=== PATIENT | male | born 1980 | race Caucasian/White ===

== ENCOUNTER 2017-05-31 15:41 | Emergency (ER) | payer OTHER ==
[~2017-05-31] VITALS: Ht 185.4 cm; Wt 86.2 kg
[2017-05-31 16:46] LABS: *BILIRUBIN,URIN NEGATIVE (NEGATIVE); *BLOOD, URINE NEGATIVE (NEGATIVE); *COLOR,URINE YELLOW (YELLOW); *KETONES,URINE NEGATIVE (NEGATIVE); *PROTEIN,URINE NEGATIVE (NEGATIVE); *UROBILINOGEN,URINE 0.2 E.U./dl (NORMAL); LEUKOCYTE ESTERASE ,URINE NEGATIVE (NEGATIVE); NITRITE, URINE NEGATIVE (NEGATIVE); PH,URINE 7.5 (5.0-8.0); UGLUCOSE NEGATIVE (NEGATIVE)
[2017-05-31 16:47] LABS: BASOPHILS # (AUTO) 0.1 K/uL (0.0-8.0); EOSINOPHILS # (AUTO) 0.3 K/uL (0.0-0.7); EOSINOPHILS % (AUTO) 2.8 % (0.0-7.0); HEMATOCRIT 46.1 % (40-50); HEMOGLOBIN 15.4 G/DL (14.0-18.0); LYMPHOCYTES # (AUTO) 2.6 K/UL (0.8-4.8); LYMPHOCYTES % (AUTO) 23.9 % (20.5-51.5); MEAN CORPUSCULAR HEMOGLOBIN 28.4 UUG (27.0-31.0); MEAN CORPUSCULAR HGB CONC 33 g/dL (32.0-37.0); MEAN CORPUSCULAR VOLUME 85.1 FL (82.0-92.0); MONOCYTES # (AUTO) 0.8 K/UL (0.1-1.30); MONOCYTES % (AUTO) 7.6 % (0.0-11.0); NEUTROPHILS # (AUTO) 7.1 K/UL (1.8-8.9); NEUTROPHILS % (AUTO) 64.7 % (38.5-71.5); PLATELET COUNT (AUTO) 221 K/UL (150-450); RED BLOOD CELL COUNT(AUTO) 5.42 MIL/UL (4.7-6.1); WHITE BLOOD COUNT (AUTO) 10.9 K/UL (4.0-11.2)
[2017-05-31 16:54] LABS: CREATININE 1.2 mg/dL (0.6-1.3); POTASSIUM 3.7 mmol/L (3.5-5.1)
[2017-05-31 16:54] LABS: *CLARITY,URINE HAZY (CLEAR)
[2017-05-31 16:56] LABS: MUCUS,URINE FEW /LPF (0-FEW); URINE AMORPHOUS PHOSPHATES MODERATE /HPF; WBC,URINE NONE SEEN /HPF (0-3)
[2017-05-31 17:06] LABS: BILIRUBIN,DIRECT 0.1 mg/dL (0.0-0.2); BILIRUBIN,TOTAL 0.3 mg/dL (0.2-1.0); TOTAL PROTEIN, SERUM 7.4 g/dL (6.4-8.2)
--- NOTE | 2017-05-31 17:23 | NUR ---
Patient is resting comfortably on gurney while using his personal electronic device, [employer]. Pain level is down to 4/10 from 6-7/10 level after IV Dialudid. Patient says "It feels different." MD notified.
--- NOTE | 2017-05-31 17:39 | NUR ---
Patient discharged to home in stable conditon. Written and verbal after care instructions given. Patient verbalizes understanding of instructions.PT WALKS IN STEADY GAIT ACCOMPANIED BY SO.
[2017-05-31 17:40] VITALS: BP 109/71
== END 2017-05-31 17:41 | disposition home or self-care (01) ==
LOC: ER 15:41
DX: K59.00 Constipation, unspecified (principal)
CPT/HCPCS: 36415; 74176; 80048; 80076; 81001; 83690; 85025; 85730; 96361; 96374; 96375; 99285; A4663; C9113; J1170; J2405; J7030

== ENCOUNTER 2017-09-23 18:25 | Inpatient (IN) | payer OTHER ==
[~2017-09-23] VITALS: Ht 188 cm; Wt 82.6 kg
[2017-09-23] MEDS ORDERED: PANTOPRAZOLE SODIUM 40 MG VIAL IV ONE (20:15)
[2017-09-23] MEDS ORDERED: IV NORMAL SALINE 1000 ML BAG IV ONE (20:15)
[2017-09-23] MEDS ORDERED: ONDANSETRON 4 MG/2 ML VIAL IV ONE (20:15)
[2017-09-23] MEDS ORDERED: HYDROMORPHONE 1 MG/1 ML DISP.SYRIN IV ONE (20:15)
[2017-09-23 20:22] LABS: BASOPHILS # (AUTO) 0.1 K/uL (0.0-8.0); BASOPHILS % (AUTO) 0.9 % (0.0-2.0); EOSINOPHILS # (AUTO) 0.3 K/uL (0.0-0.7); EOSINOPHILS % (AUTO) 2.7 % (0.0-7.0); HEMATOCRIT 41.1 % (36.7-47.1); HEMOGLOBIN 13.9 g/dL (12.5-16.3); LYMPHOCYTES # (AUTO) 2.5 K/uL (20.0-40.0); LYMPHOCYTES % (AUTO) 21.3 % (20.5-51.5); MEAN CORPUSCULAR HEMOGLOBIN 29.2 uug (23.8-33.4); MEAN CORPUSCULAR HGB CONC 34 g/dL (32.5-36.3); MEAN CORPUSCULAR VOLUME 85.9 fL (73.0-96.2); MONOCYTES # (AUTO) 1.1 K/uL (2.0-10.0); MONOCYTES % (AUTO) 9.3 % (0.0-11.0); NEUTROPHILS # (AUTO) 7.8 K/uL (1.8-8.9); NEUTROPHILS % (AUTO) 65.8 % (38.5-71.5); PLATELET COUNT (AUTO) 213 K/uL (152-348); RED BLOOD CELL COUNT(AUTO) 4.78 MIL/uL (4.06-5.63); WHITE BLOOD COUNT (AUTO) 11.8 K/uL (3.6-10.2)
[2017-09-23] MEDS ORDERED: HYDROMORPHONE 1 MG/1 ML DISP.SYRIN ONE (20:32)
[2017-09-23] MEDS ORDERED: ONDANSETRON 4 MG/2 ML VIAL ONE (20:32)
[2017-09-23 20:33] LABS: CREATININE 0.9 mg/dL (0.6-1.3); POTASSIUM 3.7 mmol/L (3.5-5.1)
[2017-09-23] MEDS ORDERED: PANTOPRAZOLE SODIUM 40 MG VIAL ONE (20:33)
[2017-09-23 20:38] LABS: BILIRUBIN,DIRECT 0.1 mg/dL (0.0-0.2); BILIRUBIN,TOTAL 0.2 mg/dL (0.2-1.0)
[2017-09-23] MEDS ORDERED: ACETAMINOPHEN 650 MG SUPP.RECT RC PRN (22:30)
[2017-09-23] MEDS ORDERED: ONDANSETRON 4 MG/2 ML VIAL IV PRN (22:30)
[2017-09-23 22:37] LABS: *BILIRUBIN,URIN NEGATIVE (NEGATIVE); *BLOOD, URINE NEGATIVE (NEGATIVE); *CLARITY,URINE SLIGHTLY CLOUDY (CLEAR); *COLOR,URINE YELLOW (YELLOW); *KETONES,URINE NEGATIVE (NEGATIVE); *PROTEIN,URINE 1+ (NEGATIVE); *UROBILINOGEN,URINE 0.2 E.U./dl (NORMAL); LEUKOCYTE ESTERASE ,URINE NEGATIVE (NEGATIVE); NITRITE, URINE NEGATIVE (NEGATIVE); PH,URINE 6.5 (5.0-8.0); UGLUCOSE NEGATIVE (NEGATIVE)
[2017-09-23 22:51] LABS: BACTERIA,URINE NONE SEEN /HPF (NONE SEEN); MUCUS,URINE FEW /LPF (0-FEW); RBC,URINE 0-3 /HPF (0-3); SQUAMOUS EPITHELIAL CELL,UR FEW /HPF (NONE SEEN); URINE AMORPHOUS URATE FEW /HPF; WBC,URINE 0-3 /HPF (0-3)
[2017-09-24] VITALS: BP 122/84
[2017-09-24] MEDS: HYDROMORPHONE 1 MG/1 ML DISP.SYRIN IV PRN ×3 (00:01→23:53)
[2017-09-24] MEDS ORDERED: HYDROMORPHONE 1 MG/1 ML DISP.SYRIN ONE ×2 (00:11→04:38)
[2017-09-24] MEDS: POTASSIUM CHLORIDE 20 MEQ in IV D5/ 0.9% NACL 1,000 ML IV PRN ×2 (01:26→15:17)
[2017-09-24 04:48] VITALS: BP 109/63
[2017-09-24 07:25] LABS: BASOPHILS # (AUTO) 0.1 K/uL (0.0-8.0); BASOPHILS % (AUTO) 0.6 % (0.0-2.0); EOSINOPHILS # (AUTO) 0.3 K/uL (0.0-0.7); EOSINOPHILS % (AUTO) 2.9 % (0.0-7.0); HEMATOCRIT 38.4 % (36.7-47.1); HEMOGLOBIN 12.9 g/dL (12.5-16.3); LYMPHOCYTES # (AUTO) 2.5 K/uL (20.0-40.0); LYMPHOCYTES % (AUTO) 25.6 % (20.5-51.5); MEAN CORPUSCULAR HEMOGLOBIN 28.8 uug (23.8-33.4); MEAN CORPUSCULAR HGB CONC 34 g/dL (32.5-36.3); MEAN CORPUSCULAR VOLUME 85.9 fL (73.0-96.2); MONOCYTES % (AUTO) 10.3 % (0.0-11.0); NEUTROPHILS % (AUTO) 60.6 % (38.5-71.5); PLATELET COUNT (AUTO) 201 K/uL (152-348); RED BLOOD CELL COUNT(AUTO) 4.47 MIL/uL (4.06-5.63); WHITE BLOOD COUNT (AUTO) 9.9 K/uL (3.6-10.2)
[2017-09-24 07:36] LABS: BILIRUBIN,TOTAL 0.2 mg/dL (0.2-1.0); CREATININE 0.8 mg/dL (0.6-1.3); MAGNESIUM 1.9 mg/dL (1.8-2.4); PHOSPHOROUS 3.9 mg/dL (2.5-4.9); POTASSIUM 3.8 mmol/L (3.5-5.1); TOTAL PROTEIN, SERUM 6.2 g/dL (6.4-8.2)
[2017-09-24] MEDS ORDERED: FAMOTIDINE. 20 MG/2 ML VIAL IV ONE (09:00)
[2017-09-24 11:03] VITALS: BP 109/74
[2017-09-24 15:03] VITALS: BP 123/88
[2017-09-24 19:00] VITALS: BP 106/64
[2017-09-25] MEDS: POTASSIUM CHLORIDE 20 MEQ in IV D5/ 0.9% NACL 1,000 ML IV PRN (01:48)
[2017-09-25] MEDS ORDERED: ACETAMINOPHEN 325 MG TABLET PO PRN (10:45)
[2017-09-25 11:02] VITALS: BP 112/72
== END 2017-09-25 13:30 | disposition home or self-care (01) | DRG 282 ==
LOC: ER 18:27 → TELE 23:01 → MED 09-24 17:40
PROVIDERS: ADMIT Internal Medicine; ATTEND Nurse Practitioner Acute Care
DX: K85.90 Acute pancreatitis without necrosis or infection, unspecified (principal); D72.829 Elevated white blood cell count, unspecified; F10.21 Alcohol dependence, in remission; Z72.0 Tobacco use; K29.80 Duodenitis without bleeding; K86.1 Other chronic pancreatitis
CPT/HCPCS: 36415; 70030-TC; 71045; 83690; 83735; 84100; 85025; 85730; 93005; A4663; C9113; J1170; J2405; J3480; J3490; J7030; J7042

== ENCOUNTER 2017-10-05 16:41 | Inpatient (IN) | payer OTHER ==
[~2017-10-05] VITALS: Ht 185.4 cm; Wt 80.3 kg
[2017-10-05] MEDS ORDERED: MORPHINE SULFATE 2 MG/1 ML DISP.SYRIN IV ONE ×2 (17:21→18:22)
[2017-10-05] MEDS ORDERED: PANTOPRAZOLE SODIUM IV 40 MG in IV DEXTROSE 5% 100 ML IV ONE (17:24)
[2017-10-05] MEDS ORDERED: IV NS 1000 ML 1,000 ML IV ONE (17:30)
[2017-10-05] MEDS ORDERED: ONDANSETRON IV *ER 4 MG/2 ML VIAL IV ONE ×2 (17:30→21:15)
[2017-10-05 17:45] LABS: BASOPHILS # (AUTO) 0.1 K/uL (0.0-8.0); BASOPHILS % (AUTO) 0.8 % (0.0-2.0); EOSINOPHILS # (AUTO) 0.2 K/uL (0.0-0.7); EOSINOPHILS % (AUTO) 2.1 % (0.0-7.0); HEMATOCRIT 43.6 % (36.7-47.1); HEMOGLOBIN 14.7 g/dL (12.5-16.3); LYMPHOCYTES # (AUTO) 2.3 K/uL (20.0-40.0); MEAN CORPUSCULAR HEMOGLOBIN 28.3 uug (23.8-33.4); MEAN CORPUSCULAR HGB CONC 34 g/dL (32.5-36.3); MEAN CORPUSCULAR VOLUME 84.2 fL (73.0-96.2); MONOCYTES # (AUTO) 0.8 K/uL (2.0-10.0); MONOCYTES % (AUTO) 8.3 % (0.0-11.0); NEUTROPHILS # (AUTO) 6.6 K/uL (1.8-8.9); NEUTROPHILS % (AUTO) 65.8 % (38.5-71.5); PLATELET COUNT (AUTO) 272 K/uL (152-348); RED BLOOD CELL COUNT(AUTO) 5.18 MIL/uL (4.06-5.63)
[2017-10-05 17:47] LABS: POTASSIUM 3.9 mmol/L (3.5-5.1)
[2017-10-05 17:53] LABS: BILIRUBIN,TOTAL 0.4 mg/dL (0.2-1.0); TOTAL PROTEIN, SERUM 7.5 g/dL (6.4-8.2)
[2017-10-05] MEDS ORDERED: PANTOPRAZOLE SODIUM 40 MG VIAL ONE (17:54)
[2017-10-05] MEDS ORDERED: ONDANSETRON 4 MG/2 ML VIAL ONE ×2 (17:54→21:26)
[2017-10-05] MEDS ORDERED: MORPHINE SULFATE 4 MG/1 ML DISP.SYRIN ONE ×3 (17:54→21:26)
--- NOTE | 2017-10-05 18:29 | NUR ---
36 years old male walking to er c/o pancreatitis flare up, nausea meds given with fair effect, 2nd dose morphine given will continue to monitor.
--- NOTE | 2017-10-05 18:42 | NUR ---
pt reassess pain improved after 2nd dose of morphine no nausea vomiting.
--- NOTE | 2017-10-05 19:00 | NUR ---
Received report from amber RN. I assumed care for this patient. Pt resting with eyes closed, no acute signs of distress.
--- NOTE | 2017-10-05 21:00 | NUR ---
Pt cont to c/o pain, requesting more pain medication. notified and Dr. Gómez at bedside.
--- NOTE | 2017-10-05 21:05 | NUR ---
Ravi paged for Dr. Gómez
[2017-10-05] MEDS ORDERED: MORPHINE SULFATE 4 MG/1 ML DISP.SYRIN IV ONE (21:15)
--- NOTE | 2017-10-05 21:21 | NUR ---
Dr. Gómez speaking with Dr. Storm for possible admission of pt
--- NOTE | 2017-10-05 21:47 | NUR ---
Passed report to MARY KAY Jennings.
--- NOTE | 2017-10-05 21:50 | NUR ---
cell technician at bedside.
[2017-10-05] MEDS ORDERED: IV NORMAL SALINE 250 ML IV ONE (21:51)
[2017-10-05] MEDS ORDERED: IOHEXOL 300MG/ML 100 ML INFUS..BTL ONE (21:51)
[2017-10-05] MEDS ORDERED: NORMAL SALINE FLUSH 10 ML DISP.SYRIN ONE (21:51)
--- NOTE | 2017-10-05 22:05 | NUR ---
MRSA culture collected and sent to lab.
--- NOTE | 2017-10-05 22:15 | NUR ---
Pt out of ER to CT scan.
--- NOTE | 2017-10-05 22:30 | NUR ---
ADMITTED NEW PATIENT TO ROOM 204,ALERT,ORIENTED, IN NO ACUTE DISTRESS,C/O UPPER ABDOMINAL PAIN WITH INTERMITTENTLY NAUSEA AND VOMITING, NOTIFIED OF ADMISSION, ORDER RECEIVED.
[2017-10-05 22:37] VITALS: BP 119/89
--- NOTE | 2017-10-05 23:00 | NUR ---
PATIENT TOLERATED CLEAR LIQUID FAIRLY WELL,NO NAUSEA NOTED.
[2017-10-05] MEDS ORDERED: ONDANSETRON 4 MG/2 ML VIAL IV PRN (23:45)
[2017-10-05] MEDS ORDERED: MAG HYDROX/AL HYDROX/SIMETH 30 ML LIQUID UDC PO PRN (23:45)
[2017-10-05] MEDS ORDERED: IV 1/2NS 1000 ML 1,000 ML IV PRN (23:45)
[2017-10-05] MEDS ORDERED: MORPHINE SULFATE 2 MG/1 ML DISP.SYRIN IV PRN (23:45)
[2017-10-06] MEDS ORDERED: MORPHINE SULFATE 4 MG/1 ML DISP.SYRIN ONE (00:02)
--- NOTE | 2017-10-06 01:00 | NUR ---
patient asleep, after medicated with morphine 4 mg iv for pain, appears comfortable.
[2017-10-06 04:38] VITALS: BP 104/63
[2017-10-06 06:52] LABS: BILIRUBIN,TOTAL 0.3 mg/dL (0.2-1.0); CREATININE 0.9 mg/dL (0.6-1.3); MAGNESIUM 1.9 mg/dL (1.8-2.4); PHOSPHOROUS 3.9 mg/dL (2.5-4.9); POTASSIUM 3.8 mmol/L (3.5-5.1); TOTAL PROTEIN, SERUM 6.3 g/dL (6.4-8.2)
[2017-10-06] MEDS ORDERED: PANTOPRAZOLE SODIUM 40 MG TABLET.DR PO SCH (07:00)
[2017-10-06 07:03] LABS: BASOPHILS # (AUTO) 0.1 K/uL (0.0-8.0); BASOPHILS % (AUTO) 0.7 % (0.0-2.0); EOSINOPHILS # (AUTO) 0.3 K/uL (0.0-0.7); EOSINOPHILS % (AUTO) 2.3 % (0.0-7.0); HEMATOCRIT 40.1 % (36.7-47.1); HEMOGLOBIN 13.4 g/dL (12.5-16.3); LYMPHOCYTES # (AUTO) 2.7 K/uL (20.0-40.0); LYMPHOCYTES % (AUTO) 21.2 % (20.5-51.5); MEAN CORPUSCULAR HEMOGLOBIN 28.1 uug (23.8-33.4); MEAN CORPUSCULAR HGB CONC 33 g/dL (32.5-36.3); MONOCYTES # (AUTO) 0.9 K/uL (2.0-10.0); MONOCYTES % (AUTO) 6.8 % (0.0-11.0); NEUTROPHILS # (AUTO) 8.7 K/uL (1.8-8.9); PLATELET COUNT (AUTO) 252 K/uL (152-348); RED BLOOD CELL COUNT(AUTO) 4.77 MIL/uL (4.06-5.63); WHITE BLOOD COUNT (AUTO) 12.6 K/uL (3.6-10.2)
--- NOTE | 2017-10-06 09:10 | NUR ---
awake, oriented x 4, up and about, states has abdominal pain 5/10- medicated with morphine 4mg iv as prn, BP 109/61. explained plan of care- verbalized understanding, call light within reach
[2017-10-06] MEDS: MORPHINE SULFATE 4 MG/1 ML DISP.SYRIN IV PRN ×3 (09:18→19:10)
--- NOTE | 2017-10-06 11:00 | NUR ---
seen by Raul Jeronimo [employer] with orders- informed of urine specimen needed- verbalized understanding
[2017-10-06 11:01] VITALS: BP 98/57
--- NOTE | 2017-10-06 11:15 | NUR ---
states wanted to see Dr Archie Jeronimo notified, pt kept NPO as ordered, ambulated in the gutier[address] way
[2017-10-06 11:22] LABS: THYROID STIMULATING HORMONE 2.101 mIU/mL (0.358-3.740)
[2017-10-06] MEDS: POTASSIUM CHLORIDE 20 MEQ in IV D5/ 0.9% NACL 1,000 ML IV PRN (13:05)
[2017-10-06] MEDS: NICOTINE 21 MG/24HR PATCH TD SCH (14:00)
[2017-10-06] MEDS: MEROPENEM 1 G in IV NORMAL SALINE 100 ML IV SCH ×2 (14:59→22:03)
[2017-10-06 15:00] VITALS: BP 102/64
--- NOTE | 2017-10-06 16:00 | NUR ---
seen by Dr Nieto
--- NOTE | 2017-10-06 18:54 | NUR ---
asking for ice cream- called Dr Nieto and okayed for hin to have ice cream, no distress noted, medicated x2 for pain this shift, no n/v, all needs attended and met, call light within reach
--- NOTE | 2017-10-06 19:00 | NUR ---
ice cream given and endorsed to next shift, if ok in 2hrs, can hve another ice cream, no distress noted
[2017-10-06 20:00] VITALS: BP 99/56
[2017-10-06] MEDS: PANTOPRAZOLE SODIUM 40 MG VIAL IV SCH (20:56)
--- NOTE | 2017-10-06 21:00 | NUR ---
PATIENT TOLERATED ICE CREAM WELL,NO NAUSEA NOTED,PLAN OF CARE EXPLAINED TO PATIENT,VERBALIZED UNDERSTANDING,IVF GOING ON.
[2017-10-07] MEDS: POTASSIUM CHLORIDE 20 MEQ in IV D5/ 0.9% NACL 1,000 ML IV PRN (02:45)
[2017-10-07] MEDS: MORPHINE SULFATE 4 MG/1 ML DISP.SYRIN IV PRN ×5 (02:46→21:22)
[2017-10-07] MEDS: MEROPENEM 1 G in IV NORMAL SALINE 100 ML IV SCH ×3 (05:59→21:46)
[2017-10-07 06:04] VITALS: BP 96/55
--- NOTE | 2017-10-07 07:00 | NUR ---
Client is sleeping, HOB at a semi fowlers position, No apparent s/s of pain, distress, discomfort or SOB. Bed at lowest position for safety and call light with in reach. IV on the left AC
[2017-10-07 07:09] LABS: BASOPHILS # (AUTO) 0.1 K/uL (0.0-8.0); EOSINOPHILS # (AUTO) 0.3 K/uL (0.0-0.7); EOSINOPHILS % (AUTO) 4.4 % (0.0-7.0); HEMATOCRIT 38.4 % (36.7-47.1); HEMOGLOBIN 12.8 g/dL (12.5-16.3); LYMPHOCYTES # (AUTO) 2.7 K/uL (20.0-40.0); LYMPHOCYTES % (AUTO) 36.1 % (20.5-51.5); MEAN CORPUSCULAR HEMOGLOBIN 28.1 uug (23.8-33.4); MEAN CORPUSCULAR HGB CONC 33 g/dL (32.5-36.3); MEAN CORPUSCULAR VOLUME 84.3 fL (73.0-96.2); MONOCYTES # (AUTO) 0.6 K/uL (2.0-10.0); MONOCYTES % (AUTO) 7.8 % (0.0-11.0); NEUTROPHILS # (AUTO) 3.9 K/uL (1.8-8.9); NEUTROPHILS % (AUTO) 50.7 % (38.5-71.5); PLATELET COUNT (AUTO) 240 K/uL (152-348); RED BLOOD CELL COUNT(AUTO) 4.56 MIL/uL (4.06-5.63); WHITE BLOOD COUNT (AUTO) 7.6 K/uL (3.6-10.2)
[2017-10-07 07:15] LABS: BILIRUBIN,TOTAL 0.1 mg/dL (0.2-1.0); CREATININE 0.9 mg/dL (0.6-1.3); MAGNESIUM 1.8 mg/dL (1.8-2.4); PHOSPHOROUS 4.2 mg/dL (2.5-4.9); TOTAL PROTEIN, SERUM 5.7 g/dL (6.4-8.2)
[2017-10-07 07:41] LABS: *BILIRUBIN,URIN NEGATIVE (NEGATIVE); *BLOOD, URINE NEGATIVE (NEGATIVE); *CLARITY,URINE CLEAR (CLEAR); *COLOR,URINE YELLOW (YELLOW); *KETONES,URINE NEGATIVE (NEGATIVE); *PROTEIN,URINE NEGATIVE (NEGATIVE); *UROBILINOGEN,URINE 0.2 E.U./dl (NORMAL); LEUKOCYTE ESTERASE ,URINE NEGATIVE (NEGATIVE); NITRITE, URINE NEGATIVE (NEGATIVE); UGLUCOSE NEGATIVE (NEGATIVE)
[2017-10-07 08:16] LABS: SQUAMOUS EPITHELIAL CELL,UR FEW /HPF (NONE SEEN)
[2017-10-07 08:17] LABS: URINE AMORPHOUS URATE FEW /HPF
[2017-10-07] MEDS: NICOTINE 21 MG/24HR PATCH TD SCH (08:33)
[2017-10-07] MEDS: PANTOPRAZOLE SODIUM 40 MG VIAL IV SCH ×2 (08:33→21:21)
--- NOTE | 2017-10-07 08:34 | NUR ---
Client refused Nicotine patch stating he hasn't smoked since he has been in the hospital
--- NOTE | 2017-10-07 10:15 | NUR ---
Called Dr Nieto for an upgrade on the client's diet from NPO (Ice cream only) to a soft diet. Diet upgraded as requested by client and as ordered by Dr. Nieto.
[2017-10-07 10:38] VITALS: BP 95/56
--- NOTE | 2017-10-07 10:40 | NUR ---
Client requested to take a shower, shower room 1 was set up. Informed him to call for assistance. And informed him on being safe
[2017-10-07] MEDS ORDERED: IV NS 1000 ML 1,000 ML IV ONE (11:30)
[2017-10-07] MEDS: ACETAMINOPHEN 325 MG TABLET PO PRN (14:54)
--- NOTE | 2017-10-07 15:06 | NUR ---
Snacks provided as requested, jell-o, pudding and applesauce given to client
[2017-10-07 15:12] VITALS: BP 100/59
[2017-10-07] MEDS: IV NS 1000 ML 1,000 ML IV PRN (17:02)
[2017-10-07 17:36] VITALS: BP 103/52
--- NOTE | 2017-10-07 18:30 | NUR ---
Client is in bed watching television. No signs and symptoms of SOB, pain, distress or discomfort. Visitor by bed side. Able to communicated need. All needs attended too. Client has been compliant with all nursing care. Bed at lowest position for safety and call light within reach for assistance.
--- NOTE | 2017-10-07 19:25 | NUR ---
PT RECEIVED IN BED, AWAKE. FRIEND AT BEDSIDE. A/OX4. ABLE TO MAKE NEEDS KNOWN. V/S STABLE. IN NO ACUTE DISTRESS. PT C/O ABDOMINAL PAIN 610 AT THIS TIME. IVF INFUSING. ON RA, TOLERATING WELL. SEEN WITH LOW GRADE FEVER OF 99.2F. WILL ADMIN TYLENOL ORDERED. COOLING MEASURES INITIATED. SAFETY MEASURES IMPLEMENTED. CALL LIGHT WITHIN REACH.
[2017-10-07 20:01] VITALS: BP 98/48
--- NOTE | 2017-10-07 21:30 | NUR ---
PT REFUSED TYLENOL FOR FEVER. PROVIDED COOLING MEASURES. WILL CONT TO MONITOR.
[2017-10-08] MEDS: MORPHINE SULFATE 4 MG/1 ML DISP.SYRIN IV PRN ×4 (01:44→17:54)
[2017-10-08 04:00] VITALS: BP 110/64
[2017-10-08] MEDS: ACETAMINOPHEN 325 MG TABLET PO PRN (05:53)
[2017-10-08] MEDS: MEROPENEM 1 G in IV NORMAL SALINE 100 ML IV SCH ×2 (05:53→14:05)
--- NOTE | 2017-10-08 06:30 | NUR ---
END OF SHIFT NOTES. PT SLEPT INTERMITTENTLY THROUGHOUT SHIFT. IN STABLE CONDITION. FOUND FEBRILE THIS AM, TYLENOL ADMINISTERED. IV ABX INFUSED. IVF INFUSING. PAIN MANAGED. ALL NEEDS ATTENDED. SAFETY MAINTAINED. CALL LIGHT WITHIN REACH.
[2017-10-08 06:50] LABS: BASOPHILS # (AUTO) 0.1 K/uL (0.0-8.0); BASOPHILS % (AUTO) 0.9 % (0.0-2.0); EOSINOPHILS # (AUTO) 0.4 K/uL (0.0-0.7); EOSINOPHILS % (AUTO) 4.3 % (0.0-7.0); HEMATOCRIT 37.5 % (36.7-47.1); HEMOGLOBIN 12.6 g/dL (12.5-16.3); LYMPHOCYTES # (AUTO) 2.9 K/uL (20.0-40.0); LYMPHOCYTES % (AUTO) 34.5 % (20.5-51.5); MEAN CORPUSCULAR HEMOGLOBIN 28.1 uug (23.8-33.4); MEAN CORPUSCULAR HGB CONC 34 g/dL (32.5-36.3); MEAN CORPUSCULAR VOLUME 83.5 fL (73.0-96.2); MONOCYTES # (AUTO) 0.8 K/uL (2.0-10.0); MONOCYTES % (AUTO) 9.5 % (0.0-11.0); NEUTROPHILS # (AUTO) 4.3 K/uL (1.8-8.9); NEUTROPHILS % (AUTO) 50.8 % (38.5-71.5); PLATELET COUNT (AUTO) 248 K/uL (152-348); RED BLOOD CELL COUNT(AUTO) 4.49 MIL/uL (4.06-5.63); WHITE BLOOD COUNT (AUTO) 8.5 K/uL (3.6-10.2)
--- NOTE | 2017-10-08 07:05 | NUR ---
Received client in bed, asleep but easily arousable. No apparent signs and symptoms of SOB, pain, distress or discomfort. Bed at lowest position and call light within reach for assistance. IV fluids running. IV site intact and patent, no signs and symptoms of infection or infiltration
[2017-10-08] MEDS: PANTOPRAZOLE SODIUM 40 MG VIAL IV SCH (08:37)
[2017-10-08] MEDS: NICOTINE 21 MG/24HR PATCH TD SCH (08:38)
--- NOTE | 2017-10-08 09:00 | NUR ---
Client refused Nicotine patch
[2017-10-08 09:13] LABS: BILIRUBIN,TOTAL 0.2 mg/dL (0.2-1.0); CREATININE 0.9 mg/dL (0.6-1.3); PHOSPHOROUS 3.7 mg/dL (2.5-4.9); POTASSIUM 4.2 mmol/L (3.5-5.1); TOTAL PROTEIN, SERUM 6.2 g/dL (6.4-8.2)
--- NOTE | 2017-10-08 10:20 | NUR ---
Wound consult done and skin intact with no apparent issues, done by wound food consultant and infection control
[2017-10-08 11:00] VITALS: BP 100/54
[2017-10-08] MEDS: IV NS 1000 ML 1,000 ML IV PRN (11:08)
--- NOTE | 2017-10-08 11:20 | NUR ---
Snacks provided, jell-o, applesauce and pudding. Fresh gown and pants provided for the client.
--- NOTE | 2017-10-08 14:23 | NUR ---
Provided client with additional snacks as request by client. Client has been tolerating meals and snacks. Client states he feels pain around his kidney area on the lower left back side. Morphine given to him prior to recent stated pain. Compliant with nursing care. Client is going to be discharge with discharge orders by the doctor. Belongings list and discharge papers signed by client. Will be leaving with Caity
[2017-10-08 15:14] VITALS: BP 148/64
[2017-10-08] MEDS ORDERED: FLEET ENEMA 133 ML BOTTLE RC ONE (16:15)
--- NOTE | 2017-10-08 16:44 | NUR ---
Fleet edema given to client. Client stated he wants to administer the fleet edema himself. Privacy given
[2017-10-08] MEDS ORDERED: BISACODYL 10 MG SUPP.RECT RC ONE (17:30)
--- NOTE | 2017-10-08 17:59 | NUR ---
Client refused Dulcolax after having explained that if the fleet edema didn't work it would be ordered and given before he left the hospital.
--- NOTE | 2017-10-08 18:10 | NUR ---
Client was advice to let me know when he was ready to leave. Came to the room and he wasn't there. He left without the paperwork but all discharge paperwork was signed by client before hand.
== END 2017-10-08 18:00 | disposition home or self-care (01) | DRG 282 ==
LOC: ER 16:43 → MED 21:50
PROVIDERS: ADMIT Internal Medicine; ATTEND Nurse Practitioner Acute Care
DX: K85.90 Acute pancreatitis without necrosis or infection, unspecified (principal); R65.10 Systemic inflammatory response syndrome (SIRS) of non-infectious origin without acute organ dysfunction; E44.0 Moderate protein-calorie malnutrition; E83.51 Hypocalcemia; R16.0 Hepatomegaly, not elsewhere classified; K86.1 Other chronic pancreatitis; F41.8 Other specified anxiety disorders; Z87.01 Personal history of pneumonia (recurrent); Z87.11 Personal history of peptic ulcer disease; Z87.81 Personal history of (healed) traumatic fracture; F17.210 Nicotine dependence, cigarettes, uncomplicated; Z80.0 Family history of malignant neoplasm of digestive organs; Z82.49 Family history of ischemic heart disease and other diseases of the circulatory system; Z83.3 Family history of diabetes mellitus; F10.11 Alcohol abuse, in remission; Y90.9 Presence of alcohol in blood, level not specified; Z68.23 Body mass index [BMI] 23.0-23.9, adult; R73.9 Hyperglycemia, unspecified
CPT/HCPCS: 36415; 71045; 82378; 83690; 83735; 84100; 84443; 85025; 85610; 86301; 86803; 87086; A4663; C9113; J2185; J2270; J2405; J3480; J3490; J7030; J7042; J7050; Q9967

== ENCOUNTER 2017-10-17 06:01 | Emergency (ER) | payer OTHER ==
[~2017-10-17] VITALS: Ht 188 cm; Wt 77.1 kg
--- NOTE | 2017-10-17 06:22 | NUR ---
Patient awake AAOx4. Patient has c/o chronic abd pain x 1 month. Patient in bed, ER MD at bedside for patient evaluation.
[2017-10-17] MEDS ORDERED: LORAZEPAM 2 MG/1 ML VIAL IV ONE (06:30)
[2017-10-17] MEDS ORDERED: KETAMINE HCL 500 MG/10 ML INJ IV ONE (06:30)
[2017-10-17] MEDS ORDERED: IV NORMAL SALINE 1000 ML BAG IV ONE (06:30)
[2017-10-17 06:57] LABS: BASOPHILS # (AUTO) 0.1 K/uL (0.0-8.0); BASOPHILS % (AUTO) 0.9 % (0.0-2.0); EOSINOPHILS # (AUTO) 0.2 K/uL (0.0-0.7); EOSINOPHILS % (AUTO) 2.5 % (0.0-7.0); HEMATOCRIT 42.8 % (36.7-47.1); HEMOGLOBIN 14.2 g/dL (12.5-16.3); LYMPHOCYTES # (AUTO) 2.3 K/uL (20.0-40.0); LYMPHOCYTES % (AUTO) 25.4 % (20.5-51.5); MEAN CORPUSCULAR HEMOGLOBIN 27.9 uug (23.8-33.4); MEAN CORPUSCULAR HGB CONC 33 g/dL (32.5-36.3); MEAN CORPUSCULAR VOLUME 83.8 fL (73.0-96.2); MONOCYTES # (AUTO) 0.8 K/uL (2.0-10.0); MONOCYTES % (AUTO) 8.5 % (0.0-11.0); NEUTROPHILS # (AUTO) 5.7 K/uL (1.8-8.9); NEUTROPHILS % (AUTO) 62.7 % (38.5-71.5); PLATELET COUNT (AUTO) 250 K/uL (152-348); RED BLOOD CELL COUNT(AUTO) 5.11 MIL/uL (4.06-5.63); WHITE BLOOD COUNT (AUTO) 9.1 K/uL (3.6-10.2)
--- NOTE | 2017-10-17 07:00 | NUR ---
RECIEVED REPORT FROM CECILIO VARGAS RN.
[2017-10-17 07:04] LABS: CREATININE 1.1 mg/dL (0.6-1.3); POTASSIUM 4.1 mmol/L (3.5-5.1)
[2017-10-17] MEDS ORDERED: LORAZEPAM 2 MG/1 ML VIAL ONE (07:07)
--- NOTE | 2017-10-17 07:08 | NUR ---
Report given to Drew Garcia.
[2017-10-17] MEDS ORDERED: KETAMINE HCL 500 MG/10 ML INJ ONE (07:09)
[2017-10-17 07:10] LABS: BILIRUBIN,DIRECT 0.1 mg/dL (0.0-0.2); BILIRUBIN,TOTAL 0.4 mg/dL (0.2-1.0); TOTAL PROTEIN, SERUM 7.5 g/dL (6.4-8.2)
--- NOTE | 2017-10-17 07:15 | NUR ---
PT TO CT SCAN VIA GURNEY. CONDITION IS STABLE.
--- NOTE | 2017-10-17 07:25 | NUR ---
PT BACK FROM CT. VERY SOUND ASLEEP BUT EASILY AROUSABLE. CONNECTED BACK TO IV NS INFUSING WELL. O2SAT 100% ON RA.
--- NOTE | 2017-10-17 12:58 | NUR ---
PT D/C'D HOME, ACI GIVEN, IV D/C'D INTACT. PT AMBULATED W/O DIFF. PT REFUSED TO SIGN ACI.
[2017-10-17 12:59] VITALS: BP 118/66
== END 2017-10-17 13:00 | disposition home or self-care (01) ==
LOC: ER 06:04
DX: K85.90 Acute pancreatitis without necrosis or infection, unspecified (principal); K80.20 Calculus of gallbladder without cholecystitis without obstruction; G89.29 Other chronic pain; F17.200 Nicotine dependence, unspecified, uncomplicated
CPT/HCPCS: 36415; 70030-TC; 71045; 83690; 85025; 85730; A4663; J2060; J3490; J7030

== ENCOUNTER 2018-04-06 18:44 | Emergency (ER) | payer OTHER ==
[~2018-04-06] VITALS: Ht 185.4 cm; Wt 77.1 kg
[2018-04-06] MEDS ORDERED: ZYRTEC (19:14)
[2018-04-06 19:45] LABS: BASOPHILS # (AUTO) 0.1 K/uL (0.0-8.0); EOSINOPHILS # (AUTO) 0.3 K/uL (0.0-0.7); EOSINOPHILS % (AUTO) 2.9 % (0.0-7.0); HEMATOCRIT 32.1 % (36.7-47.1); HEMOGLOBIN 10.1 g/dL (12.5-16.3); LYMPHOCYTES # (AUTO) 1.7 K/uL (20.0-40.0); LYMPHOCYTES % (AUTO) 19.7 % (20.5-51.5); MEAN CORPUSCULAR HEMOGLOBIN 23.8 uug (23.8-33.4); MEAN CORPUSCULAR HGB CONC 32 g/dL (32.5-36.3); MEAN CORPUSCULAR VOLUME 75.5 fL (73.0-96.2); MONOCYTES # (AUTO) 0.6 K/uL (2.0-10.0); MONOCYTES % (AUTO) 6.5 % (0.0-11.0); NEUTROPHILS # (AUTO) 6.2 K/uL (1.8-8.9); NEUTROPHILS % (AUTO) 69.9 % (38.5-71.5); PLATELET COUNT (AUTO) 284 K/uL (152-348); RED BLOOD CELL COUNT(AUTO) 4.26 MIL/uL (4.06-5.63); WHITE BLOOD COUNT (AUTO) 8.8 K/uL (3.6-10.2)
[2018-04-06 19:59] LABS: CREATININE 1.1 mg/dL (0.6-1.3)
[2018-04-06 20:05] LABS: BILIRUBIN,DIRECT 0.1 mg/dL (0.0-0.2); BILIRUBIN,TOTAL 0.2 mg/dL (0.2-1.0); TOTAL PROTEIN, SERUM 6.8 g/dL (6.4-8.2)
[2018-04-06 20:24] LABS: *BILIRUBIN,URIN NEGATIVE (NEGATIVE); *BLOOD, URINE NEGATIVE (NEGATIVE); *CLARITY,URINE CLEAR (CLEAR); *COLOR,URINE YELLOW (YELLOW); *KETONES,URINE NEGATIVE (NEGATIVE); *PROTEIN,URINE NEGATIVE (NEGATIVE); *UROBILINOGEN,URINE 0.2 E.U./dl (NORMAL); LEUKOCYTE ESTERASE ,URINE NEGATIVE (NEGATIVE); NITRITE, URINE NEGATIVE (NEGATIVE); UGLUCOSE NEGATIVE (NEGATIVE)
[2018-04-06] MEDS ORDERED: PANTOPRAZOLE SODIUM 40 MG VIAL IV ONE (20:30)
[2018-04-06] MEDS ORDERED: MAG HYDROX/AL HYDROX/SIMETH 30 ML LIQUID UDC PO ONE (20:30)
[2018-04-06] MEDS ORDERED: LIDOCAINE VISCUS 2% 15 ML UDC MM ONE (20:30)
[2018-04-06] MEDS ORDERED: LIDOCAINE VISCUS 2% 15 ML UDC ONE (20:42)
[2018-04-06] MEDS ORDERED: MAG HYDROX/AL HYDROX/SIMETH 30 ML LIQUID UDC ONE (20:42)
[2018-04-06] MEDS ORDERED: PANTOPRAZOLE SODIUM 40 MG TABLET.DR PO ONE ×2 (20:43→20:45)
--- NOTE | 2018-04-06 20:44 | NUR ---
Patient discharged to home in stable conditon. Written and verbal after care instructions given. Patient verbalizes understanding of instructions. Pt ambulated out of ER in steady gait. All belongings with pt. VSS. NAD noted.
[2018-04-06 20:46] VITALS: BP 111/66
[2018-04-06 20:49] LABS: BACTERIA,URINE NONE SEEN /HPF (NONE SEEN); RBC,URINE 0-3 /HPF (0-3); SQUAMOUS EPITHELIAL CELL,UR NONE SEEN /HPF (NONE SEEN); WBC,URINE 0-3 /HPF (0-3)
== END 2018-04-06 20:48 | disposition home or self-care (01) ==
LOC: ER 18:51
DX: K29.70 Gastritis, unspecified, without bleeding (principal); F17.200 Nicotine dependence, unspecified, uncomplicated; Z88.8 Allergy status to other drugs, medicaments and biological substances
CPT/HCPCS: 36415; 74021; 83690; 85025; A4663

== ENCOUNTER 2018-10-08 04:51 | Emergency (ER) | payer OTHER ==
[~2018-10-08] VITALS: Ht 185.4 cm; Wt 86.2 kg
[~2018-10-08 04:51] MED LIST: ZYRTEC
--- NOTE | 2018-10-08 05:15 | NUR ---
Pt ambulated in ER with stable gait with the c/o epigastric pain radiating to LUQ x 3 days and worsened this morning. Patient states that he took pepto-bismol and julio-seltzer 2 hours [employer] with no relief. Pt states that he is nauseous with no episode of vomiting/diarrhea. Safe environment implemented.
--- NOTE | 2018-10-08 05:23 | NUR ---
Dr. Goff at bedside for MSE
[2018-10-08] MEDS ORDERED: HYDROMORPHONE 1 MG/1 ML DISP.SYRIN IV ONE (05:30)
[2018-10-08] MEDS ORDERED: ONDANSETRON 4 MG/2 ML VIAL IV ONE (05:30)
[2018-10-08] MEDS ORDERED: PANTOPRAZOLE SODIUM 40 MG VIAL IV ONE (05:30)
[2018-10-08] MEDS ORDERED: IV NORMAL SALINE 1000 ML BAG IV ONE (05:30)
[2018-10-08] MEDS ORDERED: ONDANSETRON 4 MG/2 ML VIAL ONE (05:32)
[2018-10-08] MEDS ORDERED: PANTOPRAZOLE SODIUM 40 MG VIAL ONE (05:32)
[2018-10-08] MEDS ORDERED: HYDROMORPHONE 1 MG/1 ML DISP.SYRIN ONE (05:32)
[2018-10-08 05:40] LABS: BASOPHILS # (AUTO) 0.1 K/uL (0.0-8.0); BASOPHILS % (AUTO) 1.2 % (0.0-2.0); EOSINOPHILS # (AUTO) 0.3 K/uL (0.0-0.7); EOSINOPHILS % (AUTO) 3.7 % (0.0-7.0); HEMATOCRIT 37.8 % (36.7-47.1); HEMOGLOBIN 12.2 g/dL (12.5-16.3); LYMPHOCYTES # (AUTO) 2.2 K/uL (20.0-40.0); LYMPHOCYTES % (AUTO) 27.4 % (20.5-51.5); MEAN CORPUSCULAR HEMOGLOBIN 23.2 uug (23.8-33.4); MEAN CORPUSCULAR HGB CONC 32 g/dL (32.5-36.3); MEAN CORPUSCULAR VOLUME 71.6 fL (73.0-96.2); MONOCYTES # (AUTO) 0.7 K/uL (2.0-10.0); MONOCYTES % (AUTO) 9.1 % (0.0-11.0); NEUTROPHILS # (AUTO) 4.7 K/uL (1.8-8.9); NEUTROPHILS % (AUTO) 58.6 % (38.5-71.5); PLATELET COUNT (AUTO) 216 K/uL (152-348); RED BLOOD CELL COUNT(AUTO) 5.28 MIL/uL (4.06-5.63); WHITE BLOOD COUNT (AUTO) 8.1 K/uL (3.6-10.2)
[2018-10-08 05:49] LABS: CARBON DIOXIDE 28 mmol/L (21-32); CHLORIDE 105 mmol/L (98-107); GLUCOSE 92 mg/dL (74-106); POTASSIUM 3.6 mmol/L (3.5-5.1); UREA NITROGEN, BLOOD 14 mg/dL (7-18)
[2018-10-08 05:55] LABS: ALANINE AMINOTRANSFERASE 27 U/L (16-63); ALKALINE PHOSPHATASE 70 U/L (50-136); ASPARTATE AMINOTRANSFERASE 18 U/L (15-37); BILIRUBIN,DIRECT < 0.1 mg/dL (0.0-0.2); BILIRUBIN,TOTAL 0.1 mg/dL (0.2-1.0); LIPASE 190 U/L (73-393)
--- NOTE | 2018-10-08 05:59 | NUR ---
Patient back in ER from CT.
[2018-10-08 06:09] LABS: EOSINOPHILS % (MANUAL) 3 % (0-8); LYMPHOCYTES % (MANUAL) 28 % (20-40); MONOCYTES % (MANUAL) 9 % (2-10); NEUTROPHILS % (MANUAL) 60 % (42-75)
[2018-10-08 06:32] VITALS: BP 128/84
--- NOTE | 2018-10-08 06:40 | NUR ---
Patient discharged to home in stable conditon. Written and verbal after care instructions given. Patient verbalizes understanding of instructions. Patient ambulated ot of ER with stable gait. Patient instructed not to drive, per patient he will be riding home with a friend. All belongings taken.
== END 2018-10-08 06:41 | disposition home or self-care (01) ==
LOC: ER 04:52
DX: K29.70 Gastritis, unspecified, without bleeding (principal); F17.200 Nicotine dependence, unspecified, uncomplicated; Z88.8 Allergy status to other drugs, medicaments and biological substances; Z79.899 Other long term (current) drug therapy
CPT/HCPCS: 36415; 71045; 74176; 80048; 80076; 83690; 84484; 85025; 85730; 93005; 96361; 96374; 96375; 99284; C9113; J1170; J2405; 70030-TC; A4663; J7030

== ENCOUNTER 2019-02-10 21:55 | Emergency (ER) | payer OTHER ==
[~2019-02-10] VITALS: Ht 185.4 cm; Wt 86.2 kg
--- NOTE | 2019-02-10 23:00 | NUR ---
PATIENT WALKED INTO ER C/O LOWER ABDOMINAL ABSCESS X3 DAYS. HERE FOR WORSENING PAIN AND SWELLING
[2019-02-10] MEDS ORDERED: ONDANSETRON 4 MG/2 ML VIAL ONE (23:41)
[2019-02-10] MEDS ORDERED: HYDROMORPHONE 2 MG/1 ML DISP.SYRIN ONE (23:41)
[2019-02-10] MEDS ORDERED: HYDROMORPHONE 1 MG/1 ML DISP.SYRIN IM ONE (23:45)
[2019-02-10] MEDS ORDERED: LIDOCAINE HCL 2% 20 ML VIAL TP ONE (23:45)
[2019-02-10] MEDS ORDERED: ONDANSETRON 4 MG/2 ML VIAL IM ONE (23:45)
--- NOTE | 2019-02-11 00:15 | NUR ---
Patient discharged to home in stable conditon. Written and verbal after care instructions given. Patient verbalizes understanding of instructions. WALKED OUT OF ER WITH NO DISTRESS NOTED. PATIENT TAKING HOME BY FRIEND
[2019-02-11 00:17] VITALS: BP 118/88
[2019-02-11] MEDS ORDERED: SULF1TAB48 PO (20:37)
== END 2019-02-11 00:18 | disposition home or self-care (01) ==
LOC: ER 21:57
DX: L02.211 Cutaneous abscess of abdominal wall (principal); F17.200 Nicotine dependence, unspecified, uncomplicated; Z88.8 Allergy status to other drugs, medicaments and biological substances; Z79.899 Other long term (current) drug therapy
CPT/HCPCS: 10060; 96372 ×2; 99283; J1170; J2405; A4663

== ENCOUNTER 2019-02-11 20:27 | Emergency (ER) | payer OTHER ==
[~2019-02-11] VITALS: Ht 185.4 cm; Wt 86.2 kg
[2019-02-11] MEDS ORDERED: SULF1TAB48 PO (20:37)
--- NOTE | 2019-02-11 20:44 | NUR ---
Pt walks into ER with c/o redness to abscess site that was I&D yesterday. No acute distress noted.
[2019-02-11] MEDS ORDERED: VANCOMYCIN 1G/D5W 200 ML PIGGYBACK IV ONE (20:45)
[2019-02-11] MEDS ORDERED: VANCOMYCIN IV 200 ML ONE (20:59)
--- NOTE | 2019-02-11 22:33 | NUR ---
Patient discharged to home in stable conditon. Written and verbal after care instructions given. Patient verbalizes understanding of instructions. Pt walked out of ER in stable gait with family. All belongings with patient. Vital signs stable. No acute distress noted.
--- NOTE | 2019-02-11 22:33 | NUR ---
IV removed. Catheter intact and site benign. Pressure and 4x4 gauze applied to site. No bleeding noted.
[2019-02-11 22:37] VITALS: BP 118/77
== END 2019-02-11 22:37 | disposition home or self-care (01) ==
LOC: ER 20:27
DX: L03.311 Cellulitis of abdominal wall (principal); F17.200 Nicotine dependence, unspecified, uncomplicated; Z88.8 Allergy status to other drugs, medicaments and biological substances; Z79.899 Other long term (current) drug therapy
CPT/HCPCS: 96365; 96366; 99283; J3370; A4663

== ENCOUNTER 2019-02-12 15:05 | Emergency (ER) | payer OTHER ==
[~2019-02-12] VITALS: Ht 185.4 cm; Wt 86.2 kg
[~2019-02-12 15:05] MED LIST changes: +SULF1TAB48 PO; -ZYRTEC
[2019-02-12] MEDS ORDERED: VANCOMYCIN IV 200 ML ONE (15:59)
[2019-02-12] MEDS ORDERED: VANCOMYCIN IV 1,000 MG in IV DEXTROSE 5% 250 ML IV ONE (16:00)
[2019-02-12] MEDS ORDERED: ONDANSETRON 4 MG/2 ML VIAL ONE (16:16)
[2019-02-12] MEDS ORDERED: PANTOPRAZOLE SODIUM 40 MG VIAL ONE (16:16)
[2019-02-12] MEDS ORDERED: IV NORMAL SALINE 1000 ML BAG IV ONE (16:30)
[2019-02-12] MEDS ORDERED: PANTOPRAZOLE SODIUM 40 MG VIAL IV ONE (16:30)
[2019-02-12] MEDS ORDERED: ONDANSETRON 4 MG/2 ML VIAL IV ONE (16:30)
[2019-02-12 18:11] VITALS: BP 109/89
--- NOTE | 2019-02-12 18:12 | NUR ---
Patient discharged to home in stable conditon. Written and verbal after care instructions given. Patient verbalizes understanding of instructions.PT WALKS IN STEADY GAIT.
== END 2019-02-12 18:24 | disposition home or self-care (01) ==
LOC: ER 15:09
DX: L02.211 Cutaneous abscess of abdominal wall (principal); Z87.891 Personal history of nicotine dependence; Z88.8 Allergy status to other drugs, medicaments and biological substances; Z79.899 Other long term (current) drug therapy
CPT/HCPCS: 96365; 96366; 96375; 99283; C9113; J3370; A4663; J2405; J7030

== ENCOUNTER 2019-02-14 00:12 | Emergency (ER) | payer OTHER ==
[~2019-02-14] VITALS: Ht 185.4 cm; Wt 86.2 kg
--- NOTE | 2019-02-14 00:30 | NUR ---
PT CAME IN FROM AND OPEN [facility] OF AN ABSCESS DONE HERE A WEEK AGO GREEN DRAINAGE NOTED AND REDNESS AND TENDERNESS AROUND THE SITE IS ON ABX THERAPY AT HOME IS AFREBILE DENIES PAIN BUT DISCOMFORT DURING PALPITATION
[2019-02-14] MEDS ORDERED: VANCOMYCIN IV 1,000 MG in IV DEXTROSE 5% 250 ML IV ONE (00:45)
[2019-02-14] MEDS ORDERED: VANCOMYCIN IV 200 ML ONE (01:00)
--- NOTE | 2019-02-14 01:00 | NUR ---
PT IS REC'ING [facility] IVBP DENIES ALLERGY MED TEACHING GIVEN COMFORT AND SAFETY MAINTAINED
--- NOTE | 2019-02-14 02:15 | NUR ---
PT IS BEING DISCHARGE TO HOME HL REMOVED SITE WNL ABD INC SITE CLEANSED AND DRESSED ROM WELL DISCHARGE TEACHING GIVEN HE VOICED HIS UNDERSTANDING WELL
[2019-02-14 02:33] VITALS: BP 122/66
== END 2019-02-14 02:15 | disposition home or self-care (01) ==
LOC: ER 00:14
DX: L02.211 Cutaneous abscess of abdominal wall (principal); F17.200 Nicotine dependence, unspecified, uncomplicated; Z79.899 Other long term (current) drug therapy; Z88.8 Allergy status to other drugs, medicaments and biological substances
CPT/HCPCS: 96365; 99284; J3370; A4663

== ENCOUNTER 2020-02-12 23:47 | Emergency (ER) | payer OTHER ==
[~2020-02-12] VITALS: Ht 185.4 cm; Wt 81.6 kg
--- NOTE | 2020-02-13 00:02 | NUR ---
Pt brought himself to ER, ambulated in steady gait. AO x 4. His chief complaint of coming here was for a big bump on his right temporal side of the head, it is round. According to him, he thinks he "popped a pimple and it grew". He feels pressure and pain in the surrounding area, currently 10/10 if pressure is not placed upon it. Not in any active distress. Placed a roll of blanket on the area of pain and placed patient on lateral side. VS monitored. Bed locked in position. Side rails x 2. Fall and safety precautions in place.
--- NOTE | 2020-02-13 00:05 | NUR ---
Dr Aggarwal at bedside for MSE.
[2020-02-13] MEDS ORDERED: HYDROCODONE/APAP 5-325MG TABLET ONE ×2 (00:59→01:31)
[2020-02-13] MEDS ORDERED: HYDROCODONE/APAP 5-325MG TABLET PO ONE ×2 (01:00→01:30)
--- NOTE | 2020-02-13 01:41 | NUR ---
MSE COMPLETED/MEDS ADMINIATERED. PT D/C'D HOME . ACI/RX X2 GIVEN. PT AMBULATED W/O DIFF/TOOKALL BELONGINGS
[2020-02-13 01:42] VITALS: BP 138/91
== END 2020-02-13 01:43 | disposition home or self-care (01) ==
LOC: ER 23:50
DX: H61.002 Unspecified perichondritis of left external ear (principal); L73.9 Follicular disorder, unspecified
CPT/HCPCS: A4663

== ENCOUNTER 2020-06-15 08:25 | Emergency (ER) | payer OTHER ==
[~2020-06-15] VITALS: Ht 185.4 cm; Wt 86.2 kg
[2020-06-15] MEDS ORDERED: ONDANSETRON 4 MG/2 ML VIAL IV ONE (08:45)
[2020-06-15] MEDS ORDERED: IV NORMAL SALINE 1000 ML BAG IV ONE (08:45)
--- NOTE | 2020-06-15 08:55 | NUR ---
PATIENT SEEN BY . IV PLACED. HE IS A/A/OX3 C/O ABDOMINAL PAIN AND SLIGHT NAUSEA, NO VOMITING OR DIARHHEA
[2020-06-15] MEDS ORDERED: FAMOTIDINE. 20 MG/2 ML VIAL IV ONE ×2 (09:00→09:04)
[2020-06-15] MEDS ORDERED: ONDANSETRON 4 MG/2 ML VIAL ONE (09:04)
[2020-06-15] MEDS ORDERED: MORPHINE SULFATE 4 MG/1 ML DISP.SYRIN IV ONE (09:15)
[2020-06-15] MEDS ORDERED: MORPHINE SULFATE 4 MG/1 ML DISP.SYRIN ONE (09:20)
[2020-06-15 09:26] LABS: BASOPHILS # (AUTO) 0.1 K/uL (0.0-8.0); BASOPHILS % (AUTO) 1.1 % (0.0-2.0); EOSINOPHILS # (AUTO) 0.4 K/uL (0.0-0.7); EOSINOPHILS % (AUTO) 4.1 % (0.0-7.0); HEMATOCRIT 38.7 % (36.7-47.1); HEMOGLOBIN 12.7 g/dL (12.5-16.3); LYMPHOCYTES # (AUTO) 2.7 K/uL (20.0-40.0); LYMPHOCYTES % (AUTO) 29.5 % (20.5-51.5); MEAN CORPUSCULAR HEMOGLOBIN 26.7 uug (23.8-33.4); MEAN CORPUSCULAR HGB CONC 33 g/dL (32.5-36.3); MEAN CORPUSCULAR VOLUME 81.7 fL (73.0-96.2); MONOCYTES # (AUTO) 0.8 K/uL (2.0-10.0); MONOCYTES % (AUTO) 8.4 % (0.0-11.0); NEUTROPHILS # (AUTO) 5.2 K/uL (1.8-8.9); NEUTROPHILS % (AUTO) 56.9 % (38.5-71.5); PLATELET COUNT (AUTO) 215 K/uL (152-348); RED BLOOD CELL COUNT(AUTO) 4.73 MIL/uL (4.06-5.63); WHITE BLOOD COUNT (AUTO) 9.1 K/uL (3.6-10.2)
[2020-06-15 09:32] LABS: CARBON DIOXIDE 29 mmol/L (21-32); CHLORIDE 104 mmol/L (98-107); GLUCOSE 89 mg/dL (74-106); POTASSIUM 4.3 mmol/L (3.5-5.1); UREA NITROGEN, BLOOD 18 mg/dL (7-18)
[2020-06-15 09:37] LABS: *BILIRUBIN,URIN NEGATIVE (NEGATIVE); *BLOOD, URINE NEGATIVE (NEGATIVE); *CLARITY,URINE CLOUDY (CLEAR); *COLOR,URINE LIGHT YELLOW (YELLOW); *KETONES,URINE NEGATIVE (NEGATIVE); *UROBILINOGEN,URINE 0.2 E.U./dl (NORMAL); LEUKOCYTE ESTERASE ,URINE NEGATIVE (NEGATIVE); NITRITE, URINE NEGATIVE (NEGATIVE); UGLUCOSE NEGATIVE (NEGATIVE)
[2020-06-15 09:37] LABS: ALANINE AMINOTRANSFERASE 20 U/L (16-63); ALKALINE PHOSPHATASE 62 U/L (50-136); ASPARTATE AMINOTRANSFERASE 9 U/L (15-37); BILIRUBIN,DIRECT < 0.1 mg/dL (0.0-0.2); BILIRUBIN,TOTAL 0.1 mg/dL (0.2-1.0); LIPASE 280 U/L (73-393); TOTAL PROTEIN, SERUM 6.5 g/dL (6.4-8.2)
[2020-06-15] MEDS ORDERED: PANTOPRAZOLE SODIUM IV 40 MG in IV DEXTROSE 5% 100 ML IV ONE (09:45)
[2020-06-15 09:59] LABS: ETHANOL < 3 MG/DL (0-0)
[2020-06-15] MEDS ORDERED: PANTOPRAZOLE SODIUM 40 MG VIAL ONE (09:59)
--- NOTE | 2020-06-15 10:32 | NUR ---
PATIENT STATES PAIN HAS DIMINISHED. DC, RX AND F/U INSTRUCTIONS GIVEN AND EXPLAINED TO PATIENT WHO STATES HE UNDERSTANDS ALL INSTRUCTIONS
--- NOTE | 2020-06-15 10:32 | NUR ---
IV removed. Catheter intact and site benign. Pressure and 4x4 gauze applied to site. No bleeding noted.
--- NOTE | 2020-06-15 10:36 | NUR ---
ALL IV MEDS GIVEN THROUGH IV ON LEFT HAND, 22G
[2020-06-15 12:29] LABS: BACTERIA,URINE NONE SEEN /HPF (NONE SEEN); RBC,URINE NONE SEEN /HPF (0-3); SQUAMOUS EPITHELIAL CELL,UR NONE SEEN /HPF (NONE SEEN); WBC,URINE 0-3 /HPF (0-3)
[2020-06-15 12:30] LABS: URINE AMORPHOUS PHOSPHATES MANY /HPF
== END 2020-06-15 10:37 | disposition home or self-care (01) ==
LOC: ER 08:25
DX: K26.9 Duodenal ulcer, unspecified as acute or chronic, without hemorrhage or perforation (principal); K29.80 Duodenitis without bleeding; Z83.3 Family history of diabetes mellitus; Z87.11 Personal history of peptic ulcer disease; Z87.19 Personal history of other diseases of the digestive system
CPT/HCPCS: 36415; 74176; 76705; 80048; 80076; 80320; 81001; 83690; 85025; 85730; 96361; 96374; 96375; 99285; C9113; J2270; J2405; J3490; A4663; G0480; J7030